=== PATIENT | male | born 1940 | race Native Hawaiian/Other Pacific Islander ===

== ENCOUNTER 2018-05-20 02:50 | Emergency (ER) | payer OTHER ==
[~2018-05-20] VITALS: Ht 175.3 cm; Wt 108.4 kg
[2018-05-20] MEDS ORDERED: CARB25TA29 PO ×2 (02:55→04:38)
[2018-05-20] MEDS ORDERED: ASPI-93 PO (02:55)
[2018-05-20] MEDS ORDERED: DIVA250T2 PO (02:56)
[2018-05-20] MEDS ORDERED: DONEPEZIL HYDRO10 M1 PO (02:56)
[2018-05-20] MEDS ORDERED: LEXAPRO10 MG PO (02:56)
[2018-05-20] MEDS ORDERED: MEMANTINE HCL10 MG PO (02:57)
[2018-05-20] MEDS ORDERED: OXYB5TAB64 PO (02:57)
[2018-05-20 03:07] LABS: PLATELET COUNT 211 K/uL (142-355)
[2018-05-20 03:15] LABS: POTASSIUM 4.4 mmol/L (3.6-5.2)
[2018-05-20 04:10] VITALS: BP 148/66; TEMP 97.4
[2018-05-20] MEDS ORDERED: KETOCONAZOLE2 % TOP (04:40)
== END 2018-05-20 04:10 | disposition other institution (70) ==
LOC: ED 02:50
PROVIDERS: Internal Medicine
DX: R00.1 Bradycardia, unspecified (principal); G30.9 Alzheimer's disease, unspecified; F02.81 Dementia in other diseases classified elsewhere, unspecified severity, with behavioral disturbance; G20 Parkinson's disease; R41.82 Altered mental status, unspecified; I45.19 Other right bundle-branch block; I45.81 Long QT syndrome; Z04.6 Encounter for general psychiatric examination, requested by authority
CPT/HCPCS: 36415; 80053; 81000; 85027; 93005; 99285

== ENCOUNTER 2018-10-15 00:29 | Emergency (ER) | payer OTHER ==
[~2018-10-15] VITALS: Ht 177.8 cm; Wt 109.3 kg
[~2018-10-15 00:29] MED LIST: ARIPIPRAZOLE10 MG PO; ASPI-93 PO; CARB25TA29 PO; CHOL100034 PO; DIVA250T2 PO; DONEPEZIL HYDRO10 M1 PO; KETOCONAZOLE2 % TOP; LEXAPRO10 MG PO; LIDOPATCH TOP; MEMANTINE HCL10 MG PO; OXYB5TAB64 PO; QUET100T2 PO
[2018-10-15 01:30] LABS: PLATELET COUNT 223 K/uL (142-355)
[2018-10-15 01:35] LABS: POTASSIUM 4.1 mmol/L (3.6-5.2)
[2018-10-15 03:07] VITALS: BP 155/74; TEMP 97.9
[2018-10-15] MEDS ORDERED: [UNRECOGNIZED DRUG - CODE] OPTH (04:44)
== END 2018-10-15 03:07 | disposition still patient (30) ==
LOC: ED 00:29
PROVIDERS: Hospitalist
DX: G30.9 Alzheimer's disease, unspecified (principal); F02.81 Dementia in other diseases classified elsewhere, unspecified severity, with behavioral disturbance; R00.1 Bradycardia, unspecified; I44.4 Left anterior fascicular block; Z04.6 Encounter for general psychiatric examination, requested by authority
CPT/HCPCS: 36415; 80053; 81000; 85027; 93005; 99285